=== PATIENT | male | born 1945 | race Two or more races ===

== ENCOUNTER 2017-03-28 08:51 | Outpatient (CLI) | payer OTHER | END 2017-03-28 15:10 | disposition home or self-care (01) | LOC: MRI 08:51 | DX: M54.5 Low back pain (principal) | CPT/HCPCS: 72148 ==

== ENCOUNTER 2017-03-28 09:01 | Outpatient (CLI) | payer OTHER | END 2017-03-28 15:23 | disposition home or self-care (01) | LOC: RAD 09:01 | DX: M25.511 Pain in right shoulder (principal); M25.512 Pain in left shoulder ==

== ENCOUNTER → 2017-03-28 | Outpatient (CLI) | payer OTHER ==
[~2017-03-28] MED LIST: DIOVAN HCT 320/1 TA2; LIPITOR20 MG; METOPROLOL TART50 MG; PRILOSEC40 MG
== END | disposition home or self-care (01) ==
LOC: RAD 09:10 → SONOGRAMA 09:10
DX: M25.511 Pain in right shoulder (principal); M25.512 Pain in left shoulder

== ENCOUNTER 2017-05-29 08:29 | Outpatient (CLI) | payer OTHER | END 2017-05-29 08:42 | disposition home or self-care (01) | LOC: LAB 08:29 | DX: D64.89 Other specified anemias (principal); E88.89 Other specified metabolic disorders; D68.8 Other specified coagulation defects; E83.42 Hypomagnesemia; E03.8 Other specified hypothyroidism; N39.0 Urinary tract infection, site not specified; B95.62 Methicillin resistant Staphylococcus aureus infection as the cause of diseases classified elsewhere; E11.9 Type 2 diabetes mellitus without complications; E55.9 Vitamin D deficiency, unspecified ==

== ENCOUNTER 2017-05-29 08:44 | Outpatient (CLI) | payer OTHER | END 2017-05-29 08:48 | disposition home or self-care (01) | LOC: EKG 08:44 | DX: I49.8 Other specified cardiac arrhythmias (principal) ==

== ENCOUNTER 2017-05-29 11:22 | Outpatient (CLI) | payer OTHER | END 2017-05-29 11:25 | disposition home or self-care (01) | LOC: RAD 501 11:22 | DX: H57.11 Ocular pain, right eye (principal) ==

== ENCOUNTER → 2017-05-29 | Outpatient (CLI) | payer OTHER ==
[~2017-05-29] MED LIST changes: +GABAPENTIN300 MG PO
== END | disposition home or self-care (01) ==
LOC: RAD 11:47
DX: Z76.89 Persons encountering health services in other specified circumstances (principal)

== ENCOUNTER 2017-06-26 10:21 | Outpatient (CLI) | payer OTHER ==
[2017-06-26] MEDS ORDERED: CANDESARTAN CIL32 MG PO (13:33)
== END 2017-06-26 10:30 | disposition home or self-care (01) ==
LOC: RAD 501 10:21
DX: S60.221A Contusion of right hand, initial encounter (principal)

== ENCOUNTER 2017-06-28 07:22 | Day surgery (SDC) | payer OTHER ==
[~2017-06-28 07:22] MED LIST changes: +CANDESARTAN CIL32 MG PO
== END 2017-06-28 17:17 | disposition home or self-care (01) ==
LOC: CIR.AMB 07:22
DX: M75.121 Complete rotator cuff tear or rupture of right shoulder, not specified as traumatic (principal); M19.011 Primary osteoarthritis, right shoulder; M75.21 Bicipital tendinitis, right shoulder; M25.311 Other instability, right shoulder; S43.081A Other subluxation of right shoulder joint, initial encounter; S46.211A Strain of muscle, fascia and tendon of other parts of biceps, right arm, initial encounter

== ENCOUNTER 2018-01-03 09:41 | Outpatient (CLI) | payer OTHER | END 2018-01-03 09:55 | disposition home or self-care (01) | LOC: NUCLEAR 09:41 | DX: M81.0 Age-related osteoporosis without current pathological fracture (principal) ==

== ENCOUNTER 2018-05-13 09:38 | Outpatient (CLI) | payer OTHER | END 2018-05-13 09:49 | disposition home or self-care (01) | LOC: TOM 09:38 | DX: K57.32 Diverticulitis of large intestine without perforation or abscess without bleeding (principal); R19.4 Change in bowel habit; R10.32 Left lower quadrant pain; K59.04 Chronic idiopathic constipation ==

== ENCOUNTER 2018-12-23 06:57 | Day surgery (SDC) | payer OTHER | END 2018-12-23 13:04 | disposition home or self-care (01) | LOC: AMB-ENDOS 06:57 → CIR.AMB 09:15 → AMB-ENDOS 09:15 | DX: K57.32 Diverticulitis of large intestine without perforation or abscess without bleeding (principal); K64.8 Other hemorrhoids ==

== ENCOUNTER → 2019-02-18 | Outpatient (CLI) | payer OTHER | END | disposition home or self-care (01) | LOC: MRI 08:10 | DX: M48.061 Spinal stenosis, lumbar region without neurogenic claudication (principal) | CPT/HCPCS: 72148 ==

== ENCOUNTER 2019-06-19 09:54 | Emergency (ER) | payer OTHER ==
[~2019-06-19] VITALS: Ht 165.1 cm; Wt 65.8 kg
[2019-06-19] MEDS ORDERED: METOPROLOL SUC100 MG PO (09:59)
[2019-06-19] MEDS ORDERED: ATACAND32 MG (09:59)
[2019-06-19] MEDS ORDERED: LIPITOR40 M1 PO (09:59)
[2019-06-19] MEDS ORDERED: DOXAZOSIN MESYLA2 MG PO (10:00)
[2019-06-19] MEDS ORDERED: FLECTOR1 EACH TOP (15:24)
[2019-06-19] MEDS ORDERED: ULTRACET PO (15:25)
== END 2019-06-19 16:05 | disposition home or self-care (01) ==
LOC: ER 09:54 → CPU-OBS 09:56 → ER 09:56
DX: R07.89 Other chest pain (principal)

== ENCOUNTER 2020-06-17 14:30 | Emergency (ER) | payer OTHER ==
[~2020-06-17] VITALS: Ht 165.1 cm; Wt 65.8 kg
[~2020-06-17 14:30] MED LIST changes: +ATACAND32 MG; +DOXAZOSIN MESYLA2 MG PO; +FLECTOR1 EACH TOP; +LIPITOR40 M1 PO; +METOPROLOL SUC100 MG PO; +ULTRACET PO
== END 2020-06-17 20:45 | disposition home or self-care (01) ==
LOC: ER 14:30
DX: K57.30 Diverticulosis of large intestine without perforation or abscess without bleeding (principal); R42 Dizziness and giddiness

== ENCOUNTER 2021-01-11 18:30 | Emergency (ER) | payer OTHER ==
[~2021-01-11] VITALS: Ht 162.6 cm; Wt 65.8 kg
[2021-01-12] MEDS ORDERED: INTESTINEX680 M1 PO (00:44)
[2021-01-12] MEDS ORDERED: PROTONIX20 MG PO (00:44)
[2021-01-12] MEDS ORDERED: ULTRACET PO (00:44)
[2021-01-12] MEDS ORDERED: PEPCID AC20 MG PO (00:44)
[2021-01-12] MEDS ORDERED: METRONIDAZOLE500 MG PO (00:44)
[2021-01-12] MEDS ORDERED: CIPRO500 MG PO (00:44)
[2021-01-12] MEDS ORDERED: DICY20TA PO (00:44)
== END 2021-01-11 22:33 | disposition home or self-care (01) ==
LOC: ER 18:30
DX: K57.32 Diverticulitis of large intestine without perforation or abscess without bleeding (principal); R10.32 Left lower quadrant pain; R51.9 Headache, unspecified

== ENCOUNTER 2021-06-27 07:30 | Outpatient (CLI) | payer OTHER ==
[~2021-06-27 07:30] MED LIST changes: +CIPRO500 MG PO; +DICY20TA PO; +INTESTINEX680 M1 PO; +METRONIDAZOLE500 MG PO; +PEPCID AC20 MG PO; +PROTONIX20 MG PO
== END 2021-06-27 07:33 | disposition home or self-care (01) ==
LOC: RAD 07:30
DX: Z98.41 Cataract extraction status, right eye (principal); H25.011 Cortical age-related cataract, right eye

== ENCOUNTER 2021-07-04 15:19 | Outpatient (CLI) | payer OTHER | END 2021-07-04 15:26 | disposition home or self-care (01) | LOC: EKG 15:19 | PROVIDERS: ATTEND Internal Medicine Cardiovascular Disease | DX: Z01.810 Encounter for preprocedural cardiovascular examination (principal) ==

== ENCOUNTER 2021-09-05 08:52 | Outpatient (CLI) | payer OTHER | END 2021-09-05 08:53 | disposition home or self-care (01) | LOC: LAB 08:52 | PROVIDERS: ATTEND Urology | DX: R97.20 Elevated prostate specific antigen [PSA] (principal) ==

== ENCOUNTER 2021-12-01 07:26 | Outpatient (CLI) | payer OTHER | END 2021-12-01 07:33 | disposition home or self-care (01) | LOC: SONOGRAMA 07:26 | PROVIDERS: ATTEND Urology | DX: C61 Malignant neoplasm of prostate (principal); R97.20 Elevated prostate specific antigen [PSA] ==

== ENCOUNTER 2022-08-20 08:40 | Emergency (ER) | payer OTHER ==
[~2022-08-20] VITALS: Ht 165.1 cm; Wt 65.8 kg
[2022-08-20] MEDS ORDERED: AMLODIPINE-OLM1 EAC1 PO (09:13)
== END 2022-08-20 14:48 | disposition home or self-care (01) ==
LOC: ER 08:40
DX: R53.1 Weakness (principal); G44.89 Other headache syndrome; R53.81 Other malaise; I10 Essential (primary) hypertension; Z20.822 Contact with and (suspected) exposure to COVID-19